=== PATIENT | male | born 1935 | race Caucasian/White ===

== ENCOUNTER 2025-08-16 08:40 | Emergency (ER) | payer MEDICARE ==
[~2025-08-16] VITALS: Ht 160 cm; Wt 53.5 kg
[2025-08-16] MEDS ORDERED: ACETAMINOPHEN ES 500 MG TABLET ONE (09:11)
[2025-08-16] MEDS: ACETAMINOPHEN 325 MG TABLET PO ONE (09:26)
[2025-08-16 14:20] VITALS: BP 140/69; TEMP 97.7; O2SAT 95
== END 2025-08-16 14:21 | disposition home or self-care (01) ==
LOC: EDBD 08:45 → ER 08:45
DX: S09.90XA Unspecified injury of head, initial encounter (principal); I10 Essential (primary) hypertension; F03.90 Unspecified dementia, unspecified severity, without behavioral disturbance, psychotic disturbance, mood disturbance, and anxiety; Z88.8 Allergy status to other drugs, medicaments and biological substances; W01.198A Fall on same level from slipping, tripping and stumbling with subsequent striking against other object, initial encounter; Y93.89 Activity, other specified; Y92.89 Other specified places as the place of occurrence of the external cause; Y99.8 Other external cause status
CPT/HCPCS: 70450-TC; 70486-TC; 72125-TC